=== PATIENT | female | born 2000 | race Caucasian/White ===

== ENCOUNTER 2024-08-04 10:19 | Emergency (ER) | payer OTHER, SELFPAY ==
[2024-08-04 10:38] VITALS: BP 109/62; PULSE 74; RESP 15; TEMP 37.3; O2SAT 100; BMI 26.5
--- NOTE | 2024-08-04 10:45 | DI.RAD.S_ITS ---
PROCEDURE: XR CHEST 2V INDICATIONS: uri sx 2 months TECHNIQUE: 2 views of the chest were acquired. COMPARISON: None. FINDINGS: Surgical changes and devices: None. Lungs and pleura: No dense consolidation or pleural effusion Mediastinum: Normal heart size Bones and chest wall: Unremarkable IMPRESSION: No acute radiographic abnormality. Dictated by: Damaso Burger M.D. on 08/04/2024 at 10:15 Approved by: Damaso Burger M.D. on 08/04/2024 at 10:15
[2024-08-04 11:39] LABS: Influenza A - CEPHEID Flu A NEGATIVE (NEGATIVE); Influenza B - CEPHEID Flu B NEGATIVE (NEGATIVE); Respiratory Syncytial Virus Negative (Negative)
[2024-08-04 11:41] LABS: COVID-19 CEPHEID 4-PLEX PCR Negative (Negative)
--- NOTE | 2024-08-04 12:56 | ED_ITS ---
HPI - URI/Sore Throat <Ya Lala PA-C - Last Filed: 08/04/24 13:25> General Chief Complaint: Upper Respiratory Symptoms Stated Complaint: sharp pain in lungs when coughing Time Seen by Provider: 08/04/24 12:03 Source: patient Mode of arrival: Ambulatory History of Present Illness HPI Narrative: 24-year-old female presents with ongoing symptoms for the last 2 months. She has had cold symptoms and a cough with thick mucus that just does not want to go away. At no time was she described any fever, chills, body aches or joint pains, no recent travel. She does have an underlying history of asthma but does take her fluticasone salmeterol controller daily. She is supposed to take it twice a day but has been skipping her morning dose because of her work schedule. She is denying any difficulty breathing but when she has a forceful cough she endorses a whiplash type pain in her upper back now and some thick mucus. She is denying any soreness of throat, ear fullness, facial pain or teeth pain, no r eal nasal congestion but when she coughs sometimes it does backup in the nasopharynx. No orthopnea or chest pain, all other systems reviewed and are negative. Related Data Previous Rx's Medication Instructions Recorded amoxicillin 875 mg tablet 875 mg PO Q12H #20 tabs 08/04/24 prednisone 20 mg tablet 40 mg (2 x 20 mg) PO DAILY #10 tabs 08/04/24 Allergies Allergy/AdvReac Type Severity Reaction Status Date / Time No Known Drug Allergies Allergy Verified 08/04/24 10:38 Review of Systems <Ya Lala PA-C - Last Filed: 08/04/24 13:25> Review of Systems Narrative: All other systems reviewed and are negative. Patient History <JOJO Zurita Last Filed: 08/04/24 13:25> Social History Smoking Status: Unknown if ever smoked Smoking Status: Unknown if ever smoked Exam <Ya Lala PA-C - Last Filed: 08/04/24 13:25> Initial Vital Signs Initial Vital Signs: Vital Signs Temperature 99.1 F 08/04/24 10:38 Pulse Rate 74 08/04/24 10:38 Respiratory Rate 15 08/04/24 10:38 Blood Pressure 109/62 08/04/24 10:38 Pulse Oximetry 100 08/04/24 10:38 Oxygen Delivery Method Room Air 08/04/24 10:38 Reviewed and are normal. Const General: cooperative, healthy appearing, comfortable and well developed Other: Smiling, seated, no distress, slightly nasal sounding, work of breathing is normal. [facility] Head: normal to inspection and normocephalic Ears: hearing grossly normal bilaterally, external ears normal, TM's normal bilaterally, EAC's normal, mastoids normal and no periauricular adenopathy Nose: external nose normal, nasal mucous membranes and turbinates normal and nasal discharge (Clear right side no obstruction) Face and sinus: normal facial exam, sinuses nontender and face symmetric Mouth: oral mucosae normal, lip normal, tongue normal and oropharynx normal Throat: posterior oropharynx normal, uvula midline and abnormal tonsil ([place] tissues mildly enlarged exudate left greater than right no vesicles) Eyes General: Yes appearance normal, both eyes and all related structures Neck Neck: normal visual inspection Chest Chest: normal inspection of the chest Resp Effort & Inspection: normal respiratory effort and able to speak in complete sentences Auscultation: clear to auscultation bilaterally, lung sounds not diminished, no rales, no rhonchi and no wheezes Cardio Rate: regular rate Rhythm: regular rhythm GI Palpation: soft and no hepatosplenomegaly <Asad Singer DO - Last Filed: 08/04/24 13:49> Initial Vital Signs Initial Vital Signs: Vital Signs Temperature 99.1 F 08/04/24 10:38 Pulse Rate 74 08/04/24 10:38 Respiratory Rate 15 08/04/24 10:38 Blood Pressure 109/62 08/04/24 10:38 Pulse Oximetry 100 08/04/24 10:38 Oxygen Delivery Method Room Air 08/04/24 10:38 Course <Ya Lala PA-C - Last Filed: 08/04/24 13:25> Orders Ordered: ED Orders 08/04/24 10:44 Covid-19 + FLU A/B + RSV - PCR Stat 08/04/24 10:45 Chest [XR chest 2V] Stat Vital Signs Vital signs: Vital Signs - 8 hr 08/04/24 10:38 08/04/24 13:43 Temperature 99.1 F Pulse Rate 74 73 Respiratory Rate 15 18 Blood Pressure 109/62 Pulse Oximetry 100 100 Oxygen Delivery Method Room Air Room Air <Asad Singer DO - Last Filed: 08/04/24 13:49> Orders Ordered: ED Orders 08/04/24 10:44 Covid-19 + FLU A/B + RSV - PCR Stat 08/04/24 10:45 Chest [XR chest 2V] Stat Vital Signs Vital signs: Vital Signs - 8 hr 08/04/24 10:38 08/04/24 13:43 Temperature 99.1 F Pulse Rate 74 73 Respiratory Rate 15 18 Blood Pressure 109/62 Pulse Oximetry 100 100 Oxygen Delivery Method Room Air Room Air MDM - URI/Sore Throat <Ya Lala PA-C - Last Filed: 08/04/24 13:25> Lab Data Lab results narrative: Negative respiratory panel for COVID, influenza, RSV. Labs: Lab Results 08/04/24 Range/Units 10:44 SARS-CoV-2 (PCR) Negative (Negative) Influenza A (RT-PCR) Flu a negative (NEGATIVE) Influenza B (RT-PCR) Flu b negative (NEGATIVE) RSV (PCR) Negative (Negative) Imaging Data Chest x-ray: My Impression: Deferred to radiologist's interpretation below. Radiologist's Impression: PROCEDURE: XR CHEST 2V INDICATIONS: uri sx 2 months TECHNIQUE: 2 views of the chest were acquired. COMPARISON: None. FINDINGS: Surgical changes and devices: None. Lungs and pleura: No dense consolidation or pleural effusion Mediastinum: Normal heart size Bones and chest wall: Unremarkable IMPRESSION: No acute radiographic abnormality. Dictated by: Damaso Burger M.D. on 08/04/2024 at 10:15 Approved by: Damaso Burger M.D. on 08/04/2024 at 10:15 [facility] Narrative Medical decision making narrative: Prolonged upper respiratory infection, afebrile, normal chest x-ray and vital signs, opted to treat her with an antimicrobial (Augmentin) due to her underlying asthma, I did dispensed a spacer so that she will have better medication delivery with both her controller as well as her rescue. I have asked her to follow up with her PCP for her ongoing asthma, please do take your controller twice daily and rinse mouth following. I have also opted to place her on a steroid burst she has had single dose in the past with some good results so we will do prednisone 40 mg daily for 5 days. Advised to take this with food. We discussed red flag warning signs at length, I have given her a note releasing her from work so that she can rest, consider some saline spray, some warm saltwater gargles for her tonsils. Although she does not have sinus pain she is very nasal sounding and I am concerned she may have some sinus involvement as well soap broad-spectrum coverage with Augmentin. Do not hesitate to seek medical attention if anything changes or you develop any new worrisome symptoms. <Asad Singer, - Last Filed: 08/04/24 13:49> Lab Data Labs: Lab Results 08/04/24 Range/Units 10:44 SARS-CoV-2 (PCR) Negative (Negative) Influenza A (RT-PCR) Flu a negative (NEGATIVE) Influenza B (RT-PCR) Flu b negative (NEGATIVE) RSV (PCR) Negative (Negative) Discharge Plan Departure Patient Disposition: Home Clinical Impression: Upper respiratory infection Qualifiers: URI type: unspecified URI Qualified Code(s): J06.9 - Acute upper respiratory infection, unspecified Asthma Qualifiers: Asthma severity: mild Asthma persistence: unspecified Asthma complication type: unspecified Qualified Code(s): J45.909 - Unspecified asthma, uncomplicated Activity Restrictions/Additional Instructions: Please use the spacer with your controller and try to take that twice daily and rinse mouth following, also use it for your rescue as again he will deliver more medication when needed. I have prescribed an antibiotic as well as a steroid for 5 days, take this with food and try to take it in the morning as it can give you a little bit more energy. I highly recommend that you follow up with your primary care provider as well regarding her asthma. Your chest x-ray was normal today and your respiratory panel was negative for influenza, COVID and RSV. Your vital signs are also normal including your oxygen. Let us see how you do and by all means do not hesitate to return if you worsen or develop any new worrisome symptoms. Steam therapy, consider saline nasal spray or rinse, continue your warm saltwater gargles and spit, hydrate this includes popsicles and soup. Prescriptions: New amoxicillin 875 mg tablet 875 mg PO Q12H Qty: 20 0RF prednisone 20 mg tablet 40 mg PO DAILY Qty: 10 0RF Stand Alone Forms: Patient Portal/API/Survey, Work Release Note ED Sign-out <Asad Singer, DO - Last Filed: 08/04/24 13:49> Cosign ED Attending Cosignature Attestation: Dr Singer Co-Sign Statement: I was available for consultation during this patient's emergency department visit. This chart is signed by myself for administrative purposes only. I did not have direct contact with this patient during this visit. They were seen independently by the APC.
[2024-08-04 13:43] VITALS: PULSE 73; RESP 18; O2SAT 100
== END 2024-08-04 13:44 | disposition home or self-care (01) ==
PROVIDERS: Emergency Medicine; Emergency Provider Physician Assistant Medical
DX: J06.9 Acute upper respiratory infection, unspecified (principal); J45.909 Unspecified asthma, uncomplicated
CPT/HCPCS: 87635; 87400 ×2; 87420; 0241U; 71046; 99281; 99283